=== PATIENT | male | born 1980 | race Hispanic/Latino ===

== ENCOUNTER 2020-03-01 17:31 | Emergency (ER) | payer BC, OTHER | END 2020-03-01 19:20 | disposition home or self-care (01) | LOC: EDH 17:31 | DX: R19.7 Diarrhea, unspecified (principal); Z20.828 Contact with and (suspected) exposure to other viral communicable diseases; Z90.49 Acquired absence of other specified parts of digestive tract | CPT/HCPCS: 87426; 87804 ×2; 99283; U0003 ==

== ENCOUNTER 2020-12-15 19:55 | Emergency (ER) | payer BC ==
[~2020-12-15] VITALS: Ht 172.7 cm; Wt 108.9 kg
[2020-12-15 20:06] VITALS: BP 129/93
[2020-12-15 20:07] VITALS: BP 129/93
== END 2020-12-16 00:26 | disposition home or self-care (01) ==
LOC: EDH 19:55
DX: U07.1 COVID-19 (principal)
CPT/HCPCS: 87635; C9803

== ENCOUNTER 2022-09-04 02:56 | Emergency (ER) | payer BC ==
[~2022-09-04] VITALS: Ht 170.2 cm; Wt 111.6 kg
[2022-09-04 02:58] VITALS: BP 143/104
[2022-09-04] MEDS ORDERED: BUPIVACAINE/PF 0.5% 30ML VIAL ONE (03:36)
[2022-09-04] MEDS ORDERED: BUPIVACAINE/PF 0.5% 10ML VIAL IJ ONE (04:00)
[2022-09-04] MEDS ORDERED: KETOROLAC 60 MG VIAL (30MG/ML) IM ONE (04:00)
[2022-09-04] MEDS ORDERED: CYCL-309 PO (04:13)
[2022-09-04] MEDS ORDERED: IBUP-1493 PO (04:13)
[2022-09-04] MEDS ORDERED: LIDOP TD (04:13)
[2022-09-04] MEDS ORDERED: GABA300C PO (04:13)
[2022-09-04] MEDS ORDERED: LIDOCAINE 5% TOPICAL PATCH TP ONE ×2 (04:30)
== END 2022-09-04 04:54 | disposition home or self-care (01) ==
LOC: EDH 02:56
DX: M54.50 Low back pain, unspecified (principal); Z90.49 Acquired absence of other specified parts of digestive tract; Z79.52 Long term (current) use of systemic steroids
CPT/HCPCS: 99284; 20552; 96372; J1030; J1885; J3490